=== PATIENT | male | born 1960 | race Caucasian/White ===

== ENCOUNTER 2016-09-13 09:31 | Day surgery (SDC) | payer BC ==
[~2016-09-13] VITALS: Ht 172.7 cm; Wt 79.9 kg
[~2016-09-13 09:31] MED LIST: ZYRT10TA2 PO
[2016-09-13] MEDS ORDERED: ROPIvacaine 0.5% 30 ML INJECTION (J2795) ONE (09:32)
[2016-09-13] MEDS ORDERED: LIDOCAINE 1% MDV 20ML VIAL ONE (09:32)
[2016-09-13] MEDS ORDERED: dexameTHASONE 10 MG/1 ML VIAL PRES.FREE (J1100) ONE (09:32)
[2016-09-13] MEDS ORDERED: LIDOCAINE 1% MDV INJ 50 ML VIAL As Ordered ONE (10:01)
[2016-09-13] MEDS ORDERED: LIDOCAINE 1% MDV 20ML VIAL As Ordered ONE (10:01)
[2016-09-13] MEDS ORDERED: EPINEPHrine INJ 1 MG/ML 1ML VIAL/AMP As Ordered ONE ×3 (10:02→10:04)
[2016-09-13] MEDS ORDERED: MIDAZOLAM INJ 2 MG/2 ML VIAL (J2250) As Ordered ONE ×2 (10:18→13:19)
[2016-09-13] MEDS ORDERED: fentaNYL 100 MCG/2 ML INJECTION (J3010) As Ordered ONE ×2 (10:18→13:19)
[2016-09-13] MEDS: LR 1,000 ML IV SCH ×3 (10:20→15:30)
[2016-09-13] MEDS ORDERED: MIDAZOLAM INJ 2 MG/2 ML VIAL (J2250) IV ONE (12:30)
[2016-09-13] MEDS ORDERED: fentaNYL 100 MCG/2 ML INJECTION (J3010) IV ONE (12:30)
[2016-09-13] MEDS ORDERED: PROPOFOL 200 MG/20 ML VIAL As Ordered ONE (13:19)
[2016-09-13] MEDS ORDERED: LIDOCAINE 2% INJ 100 MG/5 ML SDV (FOR ANES.) As Ordered ONE (13:19)
[2016-09-13] MEDS ORDERED: ROCURONIUM BROMIDE 50 MG/5 ML VIAL As Ordered ONE (13:19)
[2016-09-13] MEDS ORDERED: PHENYLephrine HCL 500 MCG/5 ML (100MCG/ML) SYRINGE (J2370) As Ordered ONE ×3 (13:27→14:35)
[2016-09-13] MEDS ORDERED: EPINEPHrine INJ 1 MG/ML 1ML VIAL/AMP XX ONE (13:31)
[2016-09-13] MEDS ORDERED: GLYCOPYRROLATE INJ 0.2 MG/ML 2 ML VIAL As Ordered ONE (13:54)
[2016-09-13] MEDS ORDERED: NEOSTIGMINE 1MG/ML 5 ML SYRINGE (J2710) As Ordered ONE (13:54)
[2016-09-13] MEDS ORDERED: ONDANSETRON 4MG/2ML VIAL (J2405) As Ordered ONE (13:54)
[2016-09-13] MEDS ORDERED: fentaNYL 100 MCG/2 ML INJECTION (J3010) IV PRN (15:30)
[2016-09-13] MEDS ORDERED: LR 1,000 ML IV SCH (15:30)
[2016-09-13] MEDS ORDERED: PERCOCET 5MG/325MG TAB PO PRN (15:30)
[2016-09-13] MEDS ORDERED: ONDANSETRON 4MG/2ML VIAL (J2405) IV PRN (15:30)
[2016-09-13] MEDS ORDERED: NORCO, ANEXSIA 5/325MG TABLET (HYDROcodone/ACETAMINOPHEN) PO PRN (15:30)
[2016-09-13] MEDS ORDERED: MORPHINE 4 MG/ML 1ML SYRINGE IV PRN (15:30)
[2016-09-13 16:00] VITALS: BP 127/68
[2016-09-13 16:30] VITALS: BP 109/55
[2016-09-13 17:30] VITALS: BP 108/67
[2016-09-13 18:30] VITALS: BP 134/73
[2016-09-13 19:30] VITALS: BP 118/73
[2016-09-13 20:30] VITALS: BP 119/70
[2016-09-14 00:30] VITALS: BP 109/61
[2016-09-14] MEDS: LR 1,000 ML IV SCH (04:00)
[2016-09-14 04:30] VITALS: BP 115/59
[2016-09-14] MEDS: NORCO, ANEXSIA 5/325MG TABLET (HYDROcodone/ACETAMINOPHEN) PO PRN ×2 (07:45→11:55)
--- NOTE | 2016-09-14 17:29 | RO ---
DATE OF PROCEDURE: 09/13/2016 PREPROCEDURE DIAGNOSES: 1. Right shoulder subscapularis tendon tear. 2. Right shoulder dislocated biceps tendon. 3. 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 4. Right shoulder supraspinatus rotator cuff tendon tear. POSTPROCEDURE DIAGNOSES: 1. Right shoulder subscapularis tendon tear. 2. Right shoulder dislocated biceps tendon. 3. 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 4. Right shoulder supraspinatus rotator cuff tendon tear. OPERATIVE PROCEDURE: 1. Right shoulder arthroscopic subscapularis tendon repair. 2. Right shoulder arthroscopic supraspinatus rotator cuff tendon tear. 3. Right shoulder arthroscopic biceps tenotomy. 4. Right shoulder arthroscopic distal clavicle excision. SURGEON: Kalli King MD RECRUITMENT AND OUTREACH ASSISTANT: Harlan Gusman ANESTHESIA: General endotracheal tube. COMPLICATIONS: None. DESCRIPTION OF PROCEDURE: Antibiotics were given intravenously preoperatively and successful general endotracheal anesthesia had been established, then he was placed in a semi beach chair position and the exam under anesthesia revealed a stable shoulder full range of motion. His right shoulder area was then prepped in the usual sterile fashion. The spider shoulder souza was utilized. After appropriate time out, I then introduced the scope through a posterior portal for a routine diagnostic arthroscopy and then I established an anterior rotator cuff interval portal. The glenohumeral articulation was intact. The biceps was clearly subluxed medially at about a 45 degree angle off the insertion superiorly on the glenoid. The subscapularis clearly showed an upper border tear and on the undersurface of the supraspinatus tendon it ws quite frayed as well. Thus, I placed a spinal needle through that area and passing an #0 PDS suture and brought it out through the rotator cuff interval portal to ana lilia later in the subacromial space to be sure it did not have a full thickness supraspinatus tear. At this point, I debrided the rotator interval such that I could get around the anterior aspect of the subscapularis tendon and preserve the common tissue above. I then established an anterior cannula just into the rotator cuff interval along the upper edge of the subscapularis tendon and then I used a small shaver and bur to debride the lesser tuberosity footprint where the subscapularis tendon had been torn from. Once that was denuded of any tissue, a nice fresh bleeding bone surface was established. I then grasped the subscapularis and pulled it up into the joint just so I could estimate where I would like to take my bite of suture to repair this upper border subscapularis tear. I then loaded the Scorpion with FiberTape and passed it around the upper border of the subscapularis tendon and then loaded both limbs onto a SwiveLock outside the joint. I used the punch then to place the hole in the subscapularis footprint that I previously burred and then passed the SwiveLock into that hole with the attached FiberTape sutures attached to the subscapularis tendon for very upper border subscapularis repair such that it looked anatomic. Photographs were taken to document this. The bicep was still hung up within the bicipital groove. At this point, I placed the scope in the subacromial space, identified the PDS suture where it was emanating from the supraspinatus tendon and then with some light debridement you could clearly see that there was basically an all but full thickness rotator cuff tear which did correspond with a signal change I could see on the MR images of the anterior aspect of supraspinatus tendon. So, I felt that this deserved a repair, thus I debrided the footprint of the supraspinatus tendon with the bur and the shaver and then I established a cannula laterally and then passed the FiberTape in a horizontal mattress fashion for a speed fix technique repair. Then I used the punch over the greater tuberosity, loaded the SwiveLock with the FiberTapes and then inserted the swivel lock into that punched hole. This provided a good water tight repair of the supraspinatus tendon tear. I then completed my bursectomy and debrided over to the AC joint. The AC joint was quite arthritic and you can see the small fragmented areas of the distal end of the clavicle which we could identify on the x-rays. Once I had adequate visualization into the joint, photographs were taken and then I established the anterior approach portal to the AC joint. I used the ablater radiofrequency wand to make sure I had excellent visualization, then used the bur to perform a distal clavicle excision. Photographs were taken before and afterward. At this point, finding no other arthroscopically treatable pathology, I copiously irrigated out the subacromial space and then removed the instruments and closed the arthroscopy portals with nylon sutures, covered the wound with adaptic dry sterile bulky dressing. He was then placed into an abduction pillow brace sling device and then awakened from general endotracheal anesthesia after having tolerated the procedure well, transferred to the recovery room in stable condition. There were no intraoperative complications. Harlan Gusman, my lead recreation assistant was critical to the success of the procedure by helping to position the patient, helping to manipulate the arm as needed, helping to pass sutures and manipulate the sutures as well as hold the scope so I could perform the operation smoothly and efficiently. YANNICK
== END 2016-09-14 11:58 | disposition home health service (06) ==
LOC: M SDC 09:31 → M MS5PR 15:50 → M SDC 09-14 11:58
PROVIDERS: ATTEND Orthopaedic Surgery
DX: S43.80XA Sprain of other specified parts of unspecified shoulder girdle, initial encounter (principal); M75.21 Bicipital tendinitis, right shoulder; S46.001A Unspecified injury of muscle(s) and tendon(s) of the rotator cuff of right shoulder, initial encounter; Y92.89 Other specified places as the place of occurrence of the external cause; Y93.9 Activity, unspecified
CPT/HCPCS: 29824; 29827; 29828; A4649; J0690; J1100; J2250; J2370; J2405; J2710; J2795; J3010

== ENCOUNTER → 2017-01-04 | Outpatient (REF) ==
--- NOTE | 2017-01-04 15:42 | REP ---
Clinical: Pain. Technique: AP, lateral, bilateral oblique and sunrise views of the left knee. Findings: Age-related changes include subtle cortical irregularity at the femoral condyles as well as minimal increase sclerosis to the tibial plateau with mild joint space narrowing. [place] view demonstrates decreased patellofemoral joint space. There is no evidence for acute fracture or dislocation. No effusion. Impression: Age-related degenerative changes. Signed by Ranjan Monroe MD 01/04/2017 03:33 P
== END ==
LOC: M SMT 14:38
PROVIDERS: ATTEND Internal Medicine
DX: M54.5 Low back pain (principal)

== ENCOUNTER → 2023-11-24 | Outpatient (REF) | payer MEDICARE, OTHER ==
[~2023-11-24] MED LIST changes: +ZYRT10CA5 PO; -ZYRT10TA2 PO
== END ==
LOC: M LAB REF 15:05
PROVIDERS: ATTEND Surgery
DX: D03.61 Melanoma in situ of right upper limb, including shoulder (principal)